=== PATIENT | male | born 1945 ===

== ENCOUNTER → 2021-07-11 10:32 | Outpatient (BNVA) | payer SELFPAY | PROVIDERS: PCP Internal Medicine; Visit Provider Internal Medicine | DX: Z02.79 Encounter for issue of other medical certificate (principal) ==

== ENCOUNTER 2021-08-09 07:15 | Outpatient (REF) | payer MEDICARE, SELFPAY ==
[2021-08-09 07:34] LABS: MANUAL DIFF FLAG NO
[2021-08-09 08:19] LABS: Basophils Percent Auto 0.4 % (0-2); Eosinophils Absolute Auto 0.3 X10*3/uL (0.0-0.4); Eosinophils Percent Auto 4.7 % (0-4); Hematocrit 40.4 % (42.0-52.0); Hemoglobin 13.3 g/dl (14.0-18.0); Imm Gran Abs Auto 0.01 X10*3/uL (0.00-0.03); Imm Gran Pct Auto 0.1 % (0.0-0.4); Lymphocytes Absolute Auto 2.2 X10*3/uL (1.2-4.9); Lymphocytes Percent Auto 32.8 % (20-40); Mean Corpuscular HGB Conc 32.9 g/dl (31.0-36.0); Mean Corpuscular Hemoglobin 27.9 pg (27.0-33.0); Mean Corpuscular Volume 84.7 fL (80.0-98.0); Mean Platelet Volume 10.4 fL (9.4-12.4); Monocytes Absolute Auto 0.6 X10*3/uL (0.1-1.2); Monocytes Percent Auto 8.9 % (2-11); Neutrophils Absolute Auto 3.6 x10*3/uL (2.0-8.3); Neutrophils Percent Auto 53.1 % (45-73); Platelet Count 167 X10*3/uL (160-400); Red Blood Count 4.77 X10*6/uL (4.60-5.80); Red Cell Distribution Width 12.9 % (11.0-16.0); White Blood Count 6.8 X10*3/uL (4.8-10.8)
[2021-08-09 08:29] LABS: Creatinine Urine 156.15 mg/dL; Microalbum/Creatinine Ratio Ur 11.5 ug/mg cr
[2021-08-09 08:34] LABS: Estimated Average Glucose 143 mg/dL; Hemoglobin A1c % 6.6 %
[2021-08-09 08:59] LABS: Alanine Aminotransferase 20 U/L (0-40); Albumin Level 4.3 g/dL (3.5-5.0); Alkaline Phosphatase < 5 U/L (39-117); Anion Gap 13 (12-20); Aspartate Amino Transferase 19 U/L (5-37); Bilirubin Direct 0.3 mg/dL (0.0-0.5); Bilirubin Total 0.8 mg/dL (0.0-1.0); Blood Urea Nitrogen 14 mg/dL (9-16); Calcium 9.5 mg/dL (8.4-10.2); Carbon Dioxide 32 mmol/L (22-29); Chloride 100 mmol/L (96-108); Cholesterol 180 mg/dL; Estimated Glomerular Filt Rate > 60; Glucose Random 127 mg/dL (60-115); HDL Cholesterol 44 mg/dL; LDL Cholesterol Calculated 118 mg/dl; Potassium 3.4 mmol/L (3.3-5.1); Sodium 142 mmol/L (135-145); Total Protein 7.2 g/dL (6.5-8.0); Triglycerides 93 mg/dL
== END 2021-08-09 07:16 | disposition home or self-care (01) ==
LOC: HO.LAB 07:15
PROVIDERS: PCP Internal Medicine Geriatric Medicine; Visit Provider Internal Medicine Geriatric Medicine
DX: E11.9 Type 2 diabetes mellitus without complications (principal); I10 Essential (primary) hypertension
CPT/HCPCS: 36415; 80048; 80061; 80076; 82043; 83036; 85025

== ENCOUNTER → 2021-09-03 08:54 | Outpatient (BNVA) | payer MEDICARE, SELFPAY | PROVIDERS: PCP Internal Medicine Geriatric Medicine; Referring Provider Internal Medicine Geriatric Medicine; Visit Provider Internal Medicine | DX: I35.0 Nonrheumatic aortic (valve) stenosis (principal); R07.2 Precordial pain; I10 Essential (primary) hypertension; E11.9 Type 2 diabetes mellitus without complications; Z79.84 Long term (current) use of oral hypoglycemic drugs | CPT/HCPCS: 93005; 99202 ==

== ENCOUNTER → 2021-10-29 09:26 | Outpatient (REF) | payer MEDICARE, SELFPAY ==
--- NOTE | ~2021-10-29 | NM_ITS ---
Exercise Myocardial perfusion study Indication: Precordial chest pain to evaluate for myocardial ischemia Technique: The patient was brought in for an exercise perfusion study on 10/29/2021. Patient performed exercise as per Javier protocol and was injected 25 mCi of sestamibi was given intravenously one target HR was achieved. Images were obtained using the SPECT gamma camera interlaced with the gating device. Images were obtained in supine position. Resting perfusion study was performed on 10/30/2021. Patient was administered 25 mCi of sestamibi intravenously at rest. Images were then obtained in supine position. Images obtained with and without CT attenuation. Total DLP 79 mGy-cm. Images were processed with the software and compared side to side in short axis, horizontal long axis and vertical long axis views. Findings: The stress perfusion study showed both attenuated as well as non attenuated images show normal uptake of radiotracer in all segments of LV myocardium. The gated study shows normal LV systolic function with calculated LVEF of 73%. LV cavity is normal in size. The gated study shows normal systolic wall thickening and contraction of all segments. There is no transient ischemic dilation. Resting study shows non attenuated images show normal uptake of radiotracer in all segments of LV. Gating at rest reveals normal systolic wall motion with ejection fraction at 68%. The findings are consistent with normal myocardial perfusion. NM/NM cardiolite stress test Impression: 1. Normal myocardial perfusion 2. Gated LVEF is 68% 3. Transient ischemic dilatation not present Stress EKG is negative for ischemia
--- NOTE | 2021-10-29 09:29 | CA_ITS ---
Acquisition Time: 2021-10-29 10:24:15 Total Exercise Time: 00:07:00 Test Indications: Chest Pain Medications: AMLODIPINE HCTZ METFORMIN PRAVASTATIN Protocol: BONNY Max HR: 136 BPM 93% of Pred: 146 BPM Max BP: 172/080 mmHG Max Work Load: 8.5 METS Exercise stress test with exercise 7 min of Bonny protocol, without anginal symptoms, with isolated PACs and PVCs, with normotensive response to exercise, without EKG changes of ischemia at peak exercise, there is nonspecific ST changes noted in recovery. Nuclear images pending. Test reviewed with Dr Keen. Referred By: Karlos Keen Overread By: AALIYAH HAQ
--- NOTE | 2021-10-29 09:29 | CA_ITS ---
Transthoracic Echocardiogram Patient (Last, First, Middle): Roel Balderas, Gender: Male Date of : 1945 Age: 76 Procedure Date: 10/29/2021 Procedure Type: Transthoracic Echocardiogram Location: OP Height: 167.64 cm Weight: 64.41 kg BSA: 1.73 m2 Heart Rate: bpm BP: 122 / 60 mmHg Director Of Programming: Referring MD: Karlos Keen MD Bonsai Culturist: Karlos Keen MD Symptoms: I35.0 - Nonrheumatic aortic (valve) stenosis Study Quality: Good ECG Rhythm: Sinus Conclusions: - The left ventricular systolic function is normal. The calculated ejection fraction is 63% by biplane method. - There is moderate calcification of the aortic valve. - There is mild tricuspid valve regurgitation. Findings Left Ventricle Normal left ventricular cavity size. There is mildly increased left ventricular wall thickness. The left ventricular systolic function is normal. The calculated ejection fraction is 63% by biplane method. There is no evidence of regional wall motion abnormalities. LV peak GLS -18.3%. Right Ventricle Normal right ventricular cavity size and systolic function. Atria The left atrium is normal in size. Aortic Valve There is moderate calcification of the aortic valve. There is no aortic valve stenosis. There is trace (trivial) aortic valve regurgitation. Mitral Valve There is mild anterior mitral leaflet thickening. There is trace mitral valve regurgitation. There is no mitral valve stenosis. Pulmonic Valve The pulmonic valve is likely normal. Tricuspid Valve There is mild tricuspid valve regurgitation. There is no evidence of pulmonary hypertension. Great Vessels The asc aorta is normal in size. Venous The inferior vena cava is normal in size and collapses greater than 50% with inspiration. Pericardium/Pleural There is no evidence of pericardial effusion. Prior Study Comparison No prior study available for comparison. Measurements 2D Linear Measurements IVSd: 1.20 0.6-0.9/0.6-1.0 cm LVIDd: 3.85 3.9-5.3/4.2-5.9 cm LVIDd Index: 2.23 2.4-3.2/2.2-3.1 cm/m2 LVIDs: 2.18 2.0-3.6 cm LVPWd: 1.22 0.7-1.1 cm Ao Root: 2.80 2.1-3.5 cm LA Diam: 3.30 2.7-3.8/3.0-4.0 cm LAIDs Index: 1.91 1.5-2.3 cm/m2 LV Mass: 197.00 67-162/88-224 g LV Mass Index: 113.87 43-95/49-115 g/m2 LVOT Diam: 2.00 3.0+(-)1.3 cm 2D Systolic Function EF 4C: 58.50 >55% EF 2C: 67.10 >55% EF BiP: 62.60 >55% Mitral Valve MV Pk E: 0.81 MV PK A: 1.04 MV Decel Time: 229.00 E/A: 0.80 E'Lateral: 10.20 E'Medial: 8.38 E/E' Med: 9.70 E/E' Lat: 7.90 PHT: 67.00 MVA PHT: 3.28 Decel Chaves: 3.54 Aortic Valve AoV Pk Sunil: 1.84 AoV Mn Sunil: 1.31 AoV VTI: 0.41 AoV Pk Grad: 14.00 Aov Mn Grad: 8.00 MARY Cont.VTI: 1.72 LVOT LVOT Pk Sunil: 0.99 LVOT Mn Sunil: 0.58 LVOT VTI: 0.22 LVOT Pk Grad: 4.00 LVOT Mn Grad: 2.00 LVOT Diam: 2.00 LVOT Area: 3.14 Diastolic Function MV Pk E: 0.81 MV Pk A: 1.04 E/A: 0.80 E'Medial: 8.38 E/E' Med: 9.70 E' Laterial: 10.20 E/E' Lat: 7.90 Right Ventricle TAPSE (mm): 21.00 Tricuspid Valve TR Pk Sunil: 2.41 TR Pk Grad: 23.00 Great Vessels Aorta Ao Root-2D: 2.80 2.0-3.7 cm Ao Asc: 2.90 2.1-3.4 cm Pulmonary Valve PV Pk Sunil: 1.14 Peak PV Grad: 5.00 Updated in Other Vendor System with Status of Final Karlos Keen MD electronically signed on 10/31/2021 1:50:32 PM with status of Final
== END ==
LOC: HO.CARD 09:26
PROVIDERS: PCP Internal Medicine Geriatric Medicine; Visit Provider Internal Medicine
DX: R07.2 Precordial pain (principal); I35.0 Nonrheumatic aortic (valve) stenosis
CPT/HCPCS: 78452; 93017; 93306; 93356; A9500

== ENCOUNTER 2022-04-05 06:03 | Emergency (ER) | payer MEDICARE, SELFPAY ==
--- NOTE | ~2022-04-05 | XR_ITS ---
EXAMINATION: XR SHOULDER, LEFT CLINICAL INFORMATION: Left shoulder pain COMPARISON: None TECHNIQUE: 3 views of the left shoulder FINDINGS: There is no evidence of acute fracture or dislocation of the left shoulder. No calcific tendinitis. No destructive bony lesions. There is question of some mild superior subluxation of the humeral head. No widening of the coracoclavicular space is seen. No significant acromial clavicular joint degenerative change seen. XR/XR shoulder LT min 2V IMPRESSION: Question mild subluxation of the humeral head. No evidence of acute fracture or dislocation.
[2022-04-05 06:20] VITALS: BP 129/57; PULSE 91; RESP 18; TEMP 36.8; O2SAT 99; BMI 20.9
[2022-04-05 07:26] VITALS: BP 128/67; PULSE 88; RESP 16; TEMP 36.9; O2SAT 98
--- NOTE | 2022-04-05 07:39 | ECG_ITS ---
Test Reason : LEFT ARM PAIN Blood Pressure : / mmHG Vent. Rate : 089 BPM Atrial Rate : 089 BPM P-R Int : 138 ms QRS Dur : 108 ms QT Int : 374 ms P-R-T Axes : 057 062 034 degrees QTc Int : 455 ms Normal sinus rhythm Normal ECG When compared with ECG of 22-DEC-2012 15:51, Nonspecific T wave abnormality now evident in Lateral leads Referred By: Noe Kong Electronically Signed By:Cliff Ralph
--- NOTE | 2022-04-05 07:47 | ED_ITS ---
HPI - General Adult General Chief complaint: General Medical Stated complaint: pain in left shoulder Time Seen by Provider: 04/05/22 07:28 Source: patient Mode of arrival: ambulatory Limitations: no limitations History of Present Illness HPI narrative: 76-year-old male with past medical history of diabetes, hypertension presents to the emergency department complaining of left shoulder pain which started 4 days ago. Patient states pain has been constant, moderate to severe at times. Made worse with specific movements and lying on his left side. Denies nausea, shortness of breath or excessive sweating. Onset (ago): day(s) Location: left and upper extremity Radiation: non-radiation Severity: moderate Quality: aching and dull Pain Consistency: constant Relieving factors: none Exacerbating factors: none Associated symptoms: denies other symptoms Treatments prior to arrival: none Related Data Home Medications Medication Instructions Recorded Confirmed amlodipine 10 mg tablet 10 mg PO DAILY 09/03/21 09/03/21 hydrochlorothiazide 50 mg tablet 50 mg PO DAILY 09/03/21 09/03/21 latanoprost 0.005 % eye drops 1 drp ophthalmic (eye) DAILY 09/03/21 09/03/21 metformin 500 mg tablet,extended 500 mg PO BID 09/03/21 09/03/21 release 24 hr pravastatin 20 mg tablet 20 mg PO DAILY 09/03/21 09/03/21 Allergies Allergy/AdvReac Type Severity Reaction Status Date / Time aspirin [Aspirin] Allergy Intermediate SWELLING Verified 09/03/21 09:05 ibuprofen [Ibuprofen] Allergy Intermediate ANGIOEDEMA Verified 09/03/21 09:05 Review of Systems Review of Systems: Constitutional: Denies chills and Denies fever(s) Eyes: Denies blurry vision and Denies diplopia ENT: Denies dizziness, Denies nasal congestion and Denies sore throat Cardiovascular: Denies chest pain, Denies syncope and Denies rapid heart rate Respiratory: Denies cough and Denies wheezing Gastrointestinal: Denies diarrhea, Denies nausea and Denies vomiting Genitourinary: No vaginal bleeding. No discharge. Musculoskeletal: Denies numbness, tingling and neck pain Neuro: Denies dizziness and Denies syncope Allergic/Immunologic: Denies wheezing, rash Neurologic: Denies Abnormal speech present [facility] Past Medical History Attestation statement: The following information was validated with the patient. Medical History Essential hypertension Type 2 diabetes mellitus with unspecified complications Surgical History (Updated 09/03/21 @ 09:05 by Niya Danielle Luis) No pertinent past surgical history Family History Family History Father No problems noted. Mother No problems noted. Social History Social History Patient Tobacco Use Status: Never used Tobacco Smoked in Last 30 Days: No Use of substances other than those prescribed or required for medical reasons: No Advance Directives: Yes Advance Directives Information Provided: Yes Advance Directives on File: No Physical Exam ED Vital Signs: Vital Signs - 24 hr 04/05/22 06:20 04/05/22 07:26 Temperature 98.3 F 98.5 F Pulse Rate 91 88 Respiratory Rate 18 16 Blood Pressure 129/57 L 128/67 Pulse Oximetry 99 98 Oxygen Delivery Method Room Air Room Air BMI result Body Mass Index 20.9 vital signs are stable and normal Const General: cooperative, healthy appearing and no acute distress Nutritional Appearance: average body habitus Orientation/consciousness: patient oriented x3 Limitations: no limitations HENMT Head: Yes normal to inspection, Yes normocephalic and Yes atraumatic Ears: external ears normal General nose exam: Normal external nose present Face and sinus: Yes normal facial exam Eyes Conjunctivae: conjunctivae normal Sclerae: sclerae normal Corneas: corneas normal Pupils: Equal, round and reactive pupils present EOM: EOMs intact bilaterally Neck Neck: Yes normal visual inspection Neck images: 1. tenderness noted without swelling Chest Chest palpation & inspection: normal inspection of the chest Resp Effort & Inspection: normal respiratory effort and no cough Auscultation: clear to auscultation bilaterally Cardio Rate: regular rate Rhythm: regular rhythm GI Inspection: Yes normal to inspection and No distended Back/Spine/Pelvis Cervical Spine: normal cervical lordosis, cervical muscular tenderness and pain with cervical ROM Skin General skin exam: no rashes or lesions noted, no mottling and no pallor Neuro General: patient oriented x3 and CN's II-XI intact bilaterally Cranial nerves: Yes Equal, round and reactive pupils present Cognition (Neuro): normal cognition Speech: No Abnormal speech present Gait exam (Neuro): Normal gait present Extrem General: Yes normal to inspection and Yes full ROM Left upper extremity: normal to inspection, full ROM and shoulder/upper arm Details: no tenderness and no swelling Medical Decision Making MDM Narrative Medical decision making narrative: 76 yo male with left shoulder pain since Wednesday. Considerations include primary shoulder problem, cervical radiculopathy, and less likely angina/ischemia/ACS. Xrays reveal possible subluxation of the humerus, but clinically not a concern. Possibly a cervical radiculopathy, but can get MRI as outpatient. ACS not an issue as EKG is unremarkable, and history is not consistent with ACS or ischemia. Will be discharged home to follow up with his PCP, re: MRI and additional testing as needed. Medical Records Medical records reviewed: Yes I reviewed the patient's medical records. Imaging Data left shoulder: Radiologist's impression: IMPRESSION: Question mild subluxation of the humeral head ECG Data Attestation: I personally reviewed and interpreted this ECG as follows: Interpretation: NSR 89. Normal intervals. Normal axis. Non specific ST-T wave changes. No acute ischemia Discharge Plan Discharge Clinical Impression: Acute pain of left shoulder, Cervical radicular pain Patient Disposition: Home, Self-Care Instructions: Cervical Radiculopathy (ED) Additional Instructions: tome el medicamento recetado sheila los pr?ximos d?as para froilan si mejora yuliya s?ntomas. Debe llamar a bermudez m?dico ma?kevin por la ma?kevin para realizar pruebas adicionales, mariela barbara resonancia magn?trevin de bermudez audrey, ya que creo que de ah? provienen yuliya s?ntomas. Si comienza a tener s?ntomas adicionales, mariela dolor en el pecho, dificultad para respirar, fiebre clara, debe llamar a bermudez m?dico de inmediato o regresar al [facility] si lo considera necesario. take the prescribed medication for the next several days to see if it improves your symptoms. You should call your doctor tomorrow morning for additional testing such as an MRI of your neck, as I think this is where your symptoms are coming from. If you start to have any additional symptoms such as chest pain, trouble breathing, high fevers, you should call your doctor right away or return to the Emergency Department if you feel it is necessary. Prescriptions: No Action metformin 500 mg tablet extended release 24 hr 500 mg PO BID amlodipine 10 mg tablet 10 mg PO DAILY hydrochlorothiazide 50 mg tablet 50 mg PO DAILY pravastatin 20 mg tablet 20 mg PO DAILY latanoprost 0.005 % drops 1 drp ophthalmic (eye) DAILY Referrals: Name,MD Mike [Primary Care Provider] - 1 day Print Language: [place] African
--- NOTE | 2022-04-05 08:02 | PC.NURSE ---
Pt's V/S are stable, pt is complaining of left upper back pain 10/10 and it gets worst with movement. Pt reports experiencing similar pain prior. Pt is a/o x5, and he is able to ambulate independently. will continue to monitor.
== END 2022-04-05 10:34 | disposition home or self-care (01) ==
PROVIDERS: Emergency Provider Emergency Medicine; PCP Internal Medicine Geriatric Medicine
DX: M25.512 Pain in left shoulder (principal); M54.2 Cervicalgia
CPT/HCPCS: 73030; 93005; 99284

== ENCOUNTER 2022-12-22 09:04 | Outpatient (REF) | payer MEDICARE, SELFPAY ==
[2022-12-22 11:30] LABS: Appearance Urine Clear; Color Urine Dark Yellow; Glucose Urine UA Negative (Negative); Leukocyte Esterase Urine Trace (Negative); Nitrite Urine Negative (Negative); UMIC TRIGGER UACC YES; Urine Blood Negative (Negative); Urine Ketones Trace mg/dL (Negative); Urine Protein 30 (1+) mg/dL (Neg-Trace)
[2022-12-22 11:38] LABS: Bacteria Urine None Seen (None Seen); Hyaline Casts Urine 0-2 /LPF (0-2); RBC Urine 0-2 /HPF (0-2); Squamous Epithelial Cell Urine 0-2 /HPF (0-2); WBC Urine 0-5 /HPF (0-5)
[2022-12-22 11:58] LABS: Anion Gap 15 (12-20); Blood Urea Nitrogen 10 mg/dL (9-16); Calcium 9.8 mg/dL (8.4-10.2); Carbon Dioxide 26 mmol/L (22-29); Chloride 106 mmol/L (96-108); Estimated Glomerular Filt Rate > 60; Glucose Random 125 mg/dL (60-115); Potassium 3.7 mmol/L (3.3-5.1); Sodium 143 mmol/L (135-145)
[2022-12-22 12:00] LABS: Prostate Specific Antigen 1.29 ng/mL (<0.05-4.0)
== END 2022-12-22 09:05 | disposition home or self-care (01) ==
LOC: HO.HHCL 09:04
PROVIDERS: Visit Provider Internal Medicine Geriatric Medicine
DX: E87.6 Hypokalemia (principal); I10 Essential (primary) hypertension; N40.0 Benign prostatic hyperplasia without lower urinary tract symptoms; Z12.5 Encounter for screening for malignant neoplasm of prostate
CPT/HCPCS: 36415; 80048; 81001; 84153

== ENCOUNTER 2023-11-09 09:30 | Outpatient (AMB) | payer MEDICARE, SELFPAY ==
--- NOTE | 2023-11-09 09:32 | MHC.OFFVIS ---
Vital Signs 11/09/23 09:41 Height 5 ft 6 in Weight 136 lb BMI 21.9 BP 162/72 H Blood Pressure Location Rt brachial Position Sitting Pulse 65 Intake Visit Reasons: External hemorroid Intake Note: Patient referred by Ifrah MCCLAIN for external hemorrhoids. Rx HC suppository not approved by insurance. Patient c/o: ? Bleeding w/BM. Last colonoscopy about 25 yrs ago. Purchase Order Checker Required: No Accompanied by: daughter Jade Colon Allergies aspirin [Aspirin] Allergy (Intermediate, Verified 11/09/23 09:39) SWELLING ibuprofen [Ibuprofen] Allergy (Intermediate, Verified 11/09/23 09:39) ANGIOEDEMA HPI Comments Details: Patient presents with a several month history of symptomatic large hemorrhoid. Because of persistent progressive symptoms he presents for further evaluation. Patient has no other GI issues or complaints. Aside from the discomfort he has no history of bleeding or change in bowel habits or blood in his stool. Patient had colonoscopy over 20 years ago which she says was within normal limits. Patient presents with his daughter. Chart was reviewed and patient evaluated [facility] Medical History Type 2 diabetes mellitus with unspecified complications Essential hypertension Surgical History No pertinent past surgical history Family History Father No problems noted. Mother No problems noted. Social History Patient Tobacco Use Status: Never used Tobacco Physical Exam Vital Signs: Last Vital Signs Pulse 65 11/09/23 09:41 BP 162/72 H 11/09/23 09:41 BMI result Body Mass Index 21.9 Chest Other: Chest breath sounds bilaterally, HS 1 in 2 GI Other: Abdomen is soft and benign. Rectal exam demonstrates a massive external hemorrhoid. Rectal exam was deferred secondary to patient's discomfort. Assessment & Plan Assessment & Plan (1) External hemorrhoid: Code(s): K64.4 - Residual hemorrhoidal skin tags Category: Surgical Plan Patient wishes to have this excised. Risks, benefits, alternatives of hemorrhoid excision reviewed the patient and included but not limited to bleeding, infection, recurrence, numbness, pain, scarring, incontinence and the patient wishes to proceed. All questions answered. Patient will be given a many bowel prep day prior. Arrangements were made for this. Coding Level of Care Code New Pt Level 5 (88971) Diagnoses External hemorrhoid K64.4
[2023-11-09 09:41] VITALS: BP 162/72; PULSE 65; BMI 21.9
== END 2023-11-09 09:47 | disposition home or self-care (01) ==
PROVIDERS: PCP Internal Medicine Geriatric Medicine; Visit Provider Surgery
DX: K64.4 Residual hemorrhoidal skin tags (principal)
CPT/HCPCS: 99204

== ENCOUNTER → 2023-11-09 09:30 | Outpatient (BNVA) | payer MEDICARE, SELFPAY | PROVIDERS: PCP Internal Medicine Geriatric Medicine; Visit Provider Surgery | DX: K64.4 Residual hemorrhoidal skin tags (principal) | CPT/HCPCS: 99202 ==

== ENCOUNTER 2023-12-30 08:02 | Outpatient (REF) | payer MEDICARE, SELFPAY ==
[2023-12-30 11:58] LABS: Creatinine Urine 114.25 mg/dL; Microalbum/Creatinine Ratio Ur 9.6 ug/mg cr (<30)
[2023-12-30 12:02] LABS: Alanine Aminotransferase 18 U/L (0-40); Albumin Level 4.1 g/dL (3.5-5.0); Alkaline Phosphatase 61 U/L (39-117); Anion Gap 12 (12-20); Aspartate Amino Transferase 17 U/L (5-37); Bilirubin Total 0.7 mg/dL (0.0-1.0); Blood Urea Nitrogen 12 mg/dL (9-16); Calcium 9.5 mg/dL (8.4-10.2); Carbon Dioxide 26 mmol/L (22-29); Chloride 107 mmol/L (96-108); Cholesterol 167 mg/dL (<200); Estimated Glomerular Filt Rate > 60; Glucose Random 130 mg/dL (60-115); HDL Cholesterol 44 mg/dL (>40); LDL Cholesterol Calculated 103 mg/dL (<100); Potassium 3.4 mmol/L (3.3-5.1); Sodium 142 mmol/L (135-145); Total Protein 7.1 g/dL (6.5-8.0); Triglycerides 100 mg/dL (<150)
[2023-12-30 12:07] LABS: ~HepC Num1 0.21 S/CO (0.00-0.79); ~Hepatitis C Antibody Nonreactive (Nonreactive)
[2023-12-30 12:20] LABS: Folate 12.7 ng/mL (> or = 4.0); Vitamin B12 406 pg/mL (200-900)
== END 2023-12-30 08:03 | disposition home or self-care (01) ==
LOC: HO.HHCL 08:02
PROVIDERS: Visit Provider Internal Medicine Geriatric Medicine
DX: E11.9 Type 2 diabetes mellitus without complications (principal); R20.8 Other disturbances of skin sensation; E11.42 Type 2 diabetes mellitus with diabetic polyneuropathy; K64.4 Residual hemorrhoidal skin tags; Z11.59 Encounter for screening for other viral diseases; Z53.20 Procedure and treatment not carried out because of patient's decision for unspecified reasons
CPT/HCPCS: 36415; 80053; 80061; 82043; 82570; 82607; 82746; 86803

== ENCOUNTER 2024-07-18 08:08 | Outpatient (REF) | payer MEDICARE, SELFPAY ==
--- OUTSIDE RECORDS SUMMARY | 2024-07-18 08:16 | XMS_ITS | Clinical Summary ---
Author Organization [employer] Address [address] [facility] 7[address] [place] [address] Care Team Providers Care Social Security Benefits Interviewer Name Role Phone Name, Mike GROSSMAN Primary Care Provider [phone] Allergies Active Allergy Reactions Criticality Noted Date Comments Aspirin Swelling 02/02/2012 Ibuprofen 02/02/2012 Other reaction(s): Angioedema Medications amitriptyline (Elavil) 10 MG tablet Take 1 tablet (10 mg) by mouth at bedtime. 30 tablet 2 09/15/19 24 Active polyethylene glycol, PEG, 3350 (MiraLax) 17 GM/SCOOP powder 17 grams in 8-12 oz fluid like water at bedtime prn constipation 527 g 2 10/26/19 24 Active pravastatin (Pravachol) 20 MG tablet Take 1 tablet (20 mg) by mouth Once per day. TAKE 1 TABLET(20 MG) BY MOUTH IN THE MORNING 90 tablet 3 12/13/19 24 025 Active metFORMIN (Glucophage) 500 MG tabletIndicatio ns:Type 2 diabetes mellitus without complication, without long-term current use of insulin (CMS/HCC) Take 0.5 tablets (250 mg) by mouth with breakfast. 15 tablet 11 01/13/20 24 025 Active amLODIPine (Norvasc) 10 MG tabletIndicatio ns:Hypertension , unspecified type TAKE 1 TABLET(10 MG) BY MOUTH IN THE MORNING 90 tablet 1 02/09/20 24 Active tamsulosin (Flomax) 0.4 MG 24 hr capsule TAKE 1 CAPSULE BY MOUTH EVERY MORNING 90 capsule 1 02/11/20 24 Active docusate sodium (Colace) 100 MG capsule TAKE 1 CAPLET BY MOUTH TWICE DAILY NEEDED CONSTIPATION 180 capsule 1 05/04/19 25 Active losartan (Cozaar) 50 MG tablet Take 1 tablet (50 mg) by mouth Once per day. 30 tablet 11 07/05/19 25 026 Active losartan (Cozaar) 25 MG tablet Take 1 tablet (25 mg) by mouth Once per day. 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 Erectile dysfunction 07/25/2012 [place]: positive 02/02/2012 Overview (06/19/2022): PPD positive for many years Never treated, no respiratory symptoms Numerous normal X-ray Hypertension 02/02/2012 Elevated LDL cholesterol level 02/02/2012 Resolved Problems Problem Noted Date Diagnosed Date Resolved Date Heart murmur 06/19/2022 01/13/2024 Encounters Date Type Department Care Team Description 07/14/2024 Population Health Risk Score [facility] () Department [address] [place] [phone] Provider, Population Health Generic 07/06/2024 Telephone [facility] [address] [place] [address] Mike Nowak MD 07/04/2024 10:00 AM EST Office Visit [facility] [address], [place] [phone] NameMike MD Hypertension, unspecified type (Primary Dx); Type 2 diabetes mellitus without complication, without long-term current use of insulin ([facility]) 07/04/2024 Travel 06/29/2024 Telephone [facility] [address] [place] [address] Patience De Oliveira MA chart prep 05/03/2024 Refill [facility] [address], [place] [phone] Ifrah Corado FNP 04/28/2024 10:00 AM EST Clinical Support [facility] [address] [facility] [place] [address] Jazmine Buckner, TERRENCE Hypertension, unspecified type [I10] 04/28/2024 Telephone [facility] [place] [address] Jazmine Buckner RN 04/21/2024 9:15 AM EST Office Visit [facility] [address] [facility] [place] [address] Name, MD Mike Type 2 diabetes mellitus without complication, without long-term current use of insulin ([facility]) (Primary Dx); Hypertension, unspecified type 04/21/2024 Abstract [facility] [place] [address] Name, MD Mike 04/21/2024 Travel from Last 3 Months Immunizations Name Administration Dates Next Due Influenza High-dose Quadrivalent Preservative Fr ee 02/09/2023,02/19/2022 Influenza Quadrivalent Adjuvanted 01/12/2020 Influenza injectable quadriv alent IIV4 with preservative 04/23/2016,02/12/2015 Influenza injectable quadrivalent preservative f ree 01/31/2019,02/26/2017 Influenza, High Dose Seasonal, Preservative Free 01/13/2024,03/11/2018 Influenza, Split (incl. purified surface antigen ) 06/12/2013,02/02/2012 Pneumococcal Conjugate PCV 13 12/14/2017 Pneumococcal Polysaccharide PPSV23 05/05/2019 TD (adult), 2 Lf tetanus tox oid, preservative free, adsorbed 09/20/2012,09/19/2002 Tdap 09/15/2023,06/12/2013 Zoster, live 12/14/2017 Social History Tobacco Use Types Packs/Day Years Used Date Smoking Tobacco: Never Smokeless Tobacco: Never Tobacco Cessation:Counseling Given: Not Answered Alcohol Use Standard Drinks/Week Comments Never 0 (1 standard drink = 0.6 oz pur e alcohol) Depression Answer Date Recorded Patient Health Questionnaire-9 Score 4 09/15/2023 Patient Health Questionnaire-9 Score 4 09/15/2023 Last PHQ-9: Questionnaire Data Not on file 0 09/15/2023 Housing Stability Answer Date Recorded What is your housing situation today? I have yonathan hernandez 09/15/[address] you li ve. Do you have problems with any of the following? None of the above 09/15/2023 Food Insecurity Answer Date Recorded Within the past 12 months, y ou worried that your food would run out before you got money to buy more: Never True 09/15/2023 Within the past 12 months,th e food you bought just didn't last and you didn't have enough money to get more: Never True Transportation Answer Date Recorded In the past 12 months, has l ack of transportation kept you from medical appts, meetings, work or from getting things needed for daily living? No 09/15/2023 Utilities Answer Date Recorded In the past 12 months, has t he electric, gas, oil or water company threatened to shut off services in your home? No 09/15/2023 Depression Answer Date Recorded Patient Health Questionnaire-2 Score 2 09/15/2023 Sex and Gender Information Value Date Recorded Sex Assigned at Male 03/02/2022 10:15 AM EDT Legal Sex Male 10:15 AM EDT Gender Identity Male 03/02/2022 10:15 AM EDT Sexual Orientation Straight 03/02/2022 10 :15 AM EDT Last Filed Vital Signs Vital Sign Reading Time Taken Comments Blood Pressure 150/81 07/04/2024 10:10 AM EST Pulse 75 07/04/2024 10:10 AM EST Temperature 36.8 ??C (98.2 ??F) 07/04/2024 1 0:10 AM EST Respiratory Rate 21 07/04/2024 10:1 0 AM EST Oxygen Saturation 98% 07/04/2024 10: 10 AM EST Inhaled Oxygen Concentration - - Weight 63.4 kg (139 lb 12.8 oz) 025 10:10 AM EST Height 167.6 cm (5' 6 ) 07/04/2024 10:1 0 AM EST Body Mass Index 22.56 07/04/2024 10:10 AM EST Plan of Treatment Upcoming Encounters Date Type Department Care Team (Late st Contact Info) Description 10/20/2024 9:15 AM EDT Office Visit [facility] [address] [place] [address] Name, MD Mike [address] [place] [address] Health Maintenance Due Date Last Done Comments Alcohol/Substance Use Screening 1957 Zoster Vaccines (2 of 3) 02/08/2018 12/14/2017 RSV Patients and Patients Aged 60 years or older (1 - 1-dose 75+ series) 10/13/2022 COVID-19 Vaccine (3 - 2023- season) 2024 08/29/2020, 08/02/2020 Depression Screening 09/14/2024 09/15/2023, 09/15/19 Diabetes: Foot Exam 09/14/2024 09/15/2023, 09/15/2023, 09/15/2023, Additional history exists SDOH Screening 09/14/2024 09/15/2023 Diabetes: Hemoglobin A1C 10/20/202404/21/ 024, 09/15/2023, 02/09/2023, Additional history exists Diabetes: Urine Protein Screening 12/29/2024 12/30/2023, 08/20/2022, 08/09/2021 Lipid Panel 12/29/2024 12/30/2023, 08/20/2022 Eye Exam 01/05/2025 07/05/2024, 11/29/2023 Tobacco Screening 07/04/2025 07/04/2024 DTaP/Tdap/Td Vaccines (3 - Td or Tdap) 09/14/2033 09/15/2023, 06/12/2013, 09/20/2012, Additional history exists Pneumococcal Vaccine: 50+ Years Completed 05/05/2019, 12/14/2017 Hepatitis C Screening Completed 12/30/2023 Influenza Vaccine Completed 01/13/2024, , 02/19/2022, Additional history exists HIB Vaccines Aged Out No longer eligi ble based on patient's age to complete this topic HPV Vaccines Aged Out No longer eligi ble based on patient's age to complete this topic Hepatitis A Vaccines Aged Out No long er eligible based on patient's age to complete this topic Hepatitis B Vaccines Aged Out No long er eligible based on patient's age to complete this topic IPV Vaccines Aged Out No longer eligi ble based on patient's age to complete this topic Meningococcal Vaccine Aged Out No roberta sherman eligible based on patient's age to complete this topic RSV under 20 months Aged Out No longe r eligible based on patient's age to complete this topic Rotavirus Vaccines Aged Out No longer eligible based on patient's age to complete this topic Procedures Procedure Name Priority Date/Time Associated Diagnosis Comments POCT GLUCOSE Routine 07/04/2024 10:15 AM EST Type 2 diabetes mellitus without complication, without long-term current use of insulin (CMS/HCC) POCT GLYCATED HEMOGLOBIN, TOTAL Routine 04/21/2024 9:25 AM EST Type 2 diabetes mellitus without complication, without long-term current use of insulin (CMS/HCC) POCT GLUCOSE Routine 04/21/2024 9:22 AM EST Type 2 diabetes mellitus without complication, without long-term current use of insulin (CMS/HCC) ALBUMIN, RANDOM URINE W/CREATININE Routine 12/30/2023 8:19 AM EDT Diet-controlled diabetes mellitus (CMS/HCC) Burning sensation of feet Diabetic polyneuropathy associated with type 2 diabetes mellitus (CMS/HCC) External hemorrhoid Need for hepatitis C screening test HEPATITIS C AB W/REFL TO HCV RNA, QN, PCR Routine 12/30/2023 8:08 AM EDT Diet-controlled diabetes mellitus (CMS/HCC) Burning sensation of feet Diabetic polyneuropathy associated with type 2 diabetes mellitus (CMS/HCC) External hemorrhoid Need for hepatitis C screening test LIPID PANEL, STANDARD Routine 12/30/2023 8:08 AM EDT Diet-controlled diabetes mellitus (CMS/HCC) Burning sensation of feet Diabetic polyneuropathy associated with type 2 diabetes mellitus (CMS/HCC) External hemorrhoid Need for hepatitis C screening test HM DIABETES EYE EXAM Routine 11/29/2023 from Last 3 Months or Most Recently Relevant to Health Maintenance Results * POCT Glucose (07/04/2024 10:15 AM EST) Only the most recent of2 resultswithin the time period is included. Glucose Blood, POC 131 60 - 200 mg/dL QC Media Lot # [id number] Lot# Expiration Date 82,625 Blood Capillary blood specimen / Unknown 07/04/2024 10:15 AM EST us Mike Nowak MD POINT OF CARE TEST ENTER/EDIT OR DERABLES Final Result * (ABNORMAL) POCT HGB A1C (04/21/2024 9:25 AM EST) Hemoglobin A1C 6.4(A) 4.0 - 6.0 % QC Media Lot # [id number] Lot# Expiration Date 71,626 Blood 04/21/2024 9:25 AM EST us Mike Nowak MD POINT OF CARE TEST ENTER/EDIT OR DERABLES Final Result * Albumin, Random Urine W/Creatinine (12/30/2023 8:19 AM EDT) Creatinine, Urine 114.25 mg/dL [facility] Microalbumin Urine 11.0 mg/L [facility] Microalbum Creatinine Ratio Ur 9.6 <30 ug/mg cr [facility] Comment:Albumin/Creatinine R atio Reference Ranges: Normal: < 30 ug/mg creatinine Microalbuminuria: 30 - 300 ug/mg creatinineClinical Albuminuria: > 300 ug/mg creatinine Urine (Urine, Random) 12/30/2023 8:19 AM EDT 12/30/2023 10:58 AM EDT Result Flores Nowak MD LAB URINE ORDERABLES Final Resul t [facility] [address] [place] [phone] * Hepatitis C Antibody with Reflex to HCV, RNA, Quantitative, Real-Time PCR (12/30/2023 8:08 AM EDT) Hepatitis C Antibody Nonreactive Nonreactive [facility] Comment:Antibodies to HCV no t detected; does not exclude early acuteHCV infection. Blood Venous blood specimen / Unknown 12/30/2023 8:08 AM EDT 12/30/2023 11:10 AM EDT us Mike Nowak MD LAB BLOOD ORDERABLES Final Resul t Performing Organization Address [facility] de Phone Number [facility] [address] [place] [phone] * (ABNORMAL) Lipid Panel, Standard (12/30/2023 8:08 AM EDT) Triglycerides 100 <150 mg/dL [facility] Comment:Desirable Triglyceri de: less than 150 mg/dLBorderline High Triglyceride 150-199 mg/dLHigh Triglyceride: 200-499 mg/dLVery High Triglyceride: greater than or equal to 5OO mg/dL Cholesterol 167 <200 mg/dL [facility] Comment:Desirable Cholestero l: less than 200 mg/dLBorderline High Cholesterol: 200-239 mg/dLHigh Cholesterol: greater than 239 mg/dL LDL Cholesterol Calculated 103(H) <100 mg/dL [facility] Comment:Desirable LDL: less than 100 mg/dLNear Optimal/Above Optimal LDL: 110- 129 mg/dLBorderline High LDL: 130-159 mg/dLHigh LDL: 160-189 mg/dLVery High LDL: greater than or equal to 190 mg/dL HDL Cholesterol 44 >40 mg/dL [facility] Comment:Desirable HDL: great er than 40 mg/dL Note: This HDL assay may give artificially low results in patients with liver disease. Blood Venous blood specimen / Unknown 12/30/2023 8:08 AM EDT 12/30/2023 11:10 AM EDT us Mike Nowak MD LAB BLOOD ORDERABLES Final Resul t Performing Organization Address [facility] Co de Phone Number [facility] [address] [place] [phone] * (ABNORMAL) Diabetes Eye Exam (11/29/2023) Eye Exam Abnormal(A) Normal 11/29/2023 us Mike Nowak MD HEALTH MAINTENANCE Final Result from Last 3 Months or Most Recently Relevant to Health Maintenance Insurance [facility] [employer]PLETE HMO Care Teams Social Security Benefits Interviewer Relationship Specialty Start Date End Date Name, MD Mike [address] [place] [address] PCP - General Family Medicine 03/07/20
--- OUTSIDE RECORDS SUMMARY | 2024-07-18 08:16 | XMS_ITS | Encounter Summary ---
Author Organization [employer] Address [address] [facility] 7[address] [place] [address] Care Team Providers Care Bridge Maintenance Worker Name Role Phone Name, Mike GROSSMAN Primary Care Provider [phone] Encounter Details Date Type Department Care Team ([facility] st Contact Info) Description 07/06/2024 Telephone [facility] [address] [place] [address] Name, MD Mike [address] [place] [address] Social History Tobacco Use Types Packs/Day Years Used Date Smoking Tobacco: Never Smokeless Tobacco: Never Alcohol Use Standard Drinks/Week Comments Never 0 [...] Orientation Straight 03/02/2022 10 :15 AM EDT documented as of this encounter Miscellaneous Notes * Telephone Encounter - Kourtney Bond - 07/06/2024 11:13 AM EST Placed outbound call to the patient to schedule Medicare Annual Wellness Visit. No answer at this time. Patient's name and were not confirmed. Left detailed message educating patient on Annual Wellness Visits. Provided contact information requesting a call back to [facility] at [phone] in order to schedule an AWV appointment. documented in this encounter Plan of Treatment Upcoming Encounters Date Type Department Care Team (Late st Contact Info) Description 10/20/2024 9:15 AM EDT Office Visit [facility] [address] [place] [phone] Name, MD Mike [address] [place] [address] documented as of this encounter Visit Diagnoses Not on filedocumented in this encounter Additional Health Concerns Assessment Noted Time PHQ-9 Depression Total Score: 4 09/15/19 24 9:05 AM EDT documented as of this encounter Care Teams Bridge Maintenance Worker Relationship Specialty Start Date End Date Name, MD Mike [address] [place] [phone] PCP - General Family Medicine 03/07/20 documented as of this encounter
--- OUTSIDE RECORDS SUMMARY | 2024-07-18 08:16 | XMS_ITS | Encounter Summary ---
Author Organization [employer] Address [address] [facility] 7t [place] [address] Care Team Providers Care Network Security Consultant Name Role Phone Name, Mike GROSSMAN Primary Care Provider [phone] Reason for Visit * Reason Onset Date Comments chart prep 06/29/2024 Encounter Details Date Type Department Care Team ([facility] st Contact Info) Description 06/29/2024 Telephone [facility] [address] [place] [address] Patience De Oliveira MA chart prep Social History Tobacco Use Types Packs/Day Years [...] encounter Miscellaneous Notes * Telephone Encounter - Patience De Oliveira MA - 06/29/2024 3:49 PM EST Chart Prep Labs: done expect BMP Images: not applicable Vaccines due: yes Referrals: complete Screenings: eye exam , Foot Exam Overdue care gaps: Glucose, Sbirt, SDOH, PHQ-9 documented in this encounter Plan of Treatment Upcoming Encounters Date Type Department Care Team (Late st Contact Info) Description 10/20/2024 9:15 AM EDT Office Visit [facility] [address] [place] [address] Name, MD Mike [address] [place] [address] documented as of this encounter Visit Diagnoses Not on filedocumented in this encounter Additional Health Concerns Assessment Noted Time PHQ-9 Depression Total Score: 4 09/15/19 24 9:05 AM EDT documented as of this encounter Care Teams Network Security Consultant Relationship Specialty Start Date End Date Name, MD Mike [address] [place] [address] PCP - General Family Medicine 03/07/20 documented as of this encounter
--- OUTSIDE RECORDS SUMMARY | 2024-07-18 08:16 | XMS_ITS | Encounter Summary ---
Author Organization [employer] Address [address] [facility] 7 [place] [address] Care Team Providers Care Photo Machine Operator Name Role Phone Name, Mike GROSSMAN Primary Care Provider [phone] Reason for Visit * Reason Comments Diabetes Encounter Details Date Type Department Care Team ([facility] st Contact Info) Description 07/04/2024 10:00 AM EST Office Visit [facility] [address] [place], [place] [phone] Name, MD Mike [address] [place] [address] Hypertension, unspecified type (Primary Dx); Type 2 diabetes mellitus without complication, without long-term current use of insulin ([facility]) Social History Tobacco Use Types Packs/Day Years [...] AM EDT documented as of this encounter Last Filed Vital Signs Vital Sign Reading [...] Mass Index 22.56 07/04/2024 10:10 AM EST documented in this encounter Progress Notes * Mike Nowak MD - 07/04/2024 10:00 AM EST Subjective Patient ID: Roel Balderas is a 78 y.o. male who presents for Diabetes. Patient comes for a follow-up visit. He does not bring his glucose meter. He is asymptomatic. Bloodsugar is well-controlled based on hemoglobin A1c of 6.6 today. His current medication regimen includes metformin 500 mg that is cutting in half. The patient is also on pravastatin 20, losartan 25, amlodipine 10. The patient assures me he is using his medications regularly. His BP is elevated today.He explains to me that he has been having high blood pressure at home also with multiple systolics in the 140s. Diastolic readings are usually below 90. The patient tells me he is going for [place] for eye exams. Upcoming appointment is in October for his next eye exam. Review of Systems Constitutional: Negative for chills, fatigue and fever. HENT: Negative for sore throat. Respiratory: Negative for cough, chest tightness and shortness of breath. Cardiovascular: Negative for chest pain, palpitations and leg swelling. Gastrointestinal: Negative for abdominal pain and blood in stool. Visit Vitals BP (!) 150/81 (BP Location: Left arm, Patient Position: Sitting, BP Cuff Size: Adult) Pulse 75 Temp 98.2 ??F (36.8 ??C) (Temporal) Resp 21 Ht 5' 6 (1.676 m) Wt 139 lb 12.8 oz (63.4 kg) SpO2 98% BMI 22.56 kg/m?? Smoking Status Never BSA 1.72 m?? Objective Physical Exam Constitutional: Appearance: Normal appearance. Cardiovascular: Rate and Rhythm: Normal rate and regular rhythm. Heart sounds: No murmur heard. Pulmonary: Effort: Pulmonary effort is normal. No respiratory distress. Breath sounds: No wheezing, rhonchi or rales. Abdominal: Palpations: Abdomen is soft. Tenderness: There is no abdominal tenderness. Musculoskeletal: Right lower leg: No edema. Left lower leg: No edema. Neurological: Mental Status: He is alert. Assessment/Plan Diagnoses and all orders for this visit: Hypertension, unspecified type Comments: Continue current dose of metformin. Reminded to avoid sweets and soda. Recommended regular physicalactivity. Continue current dose of pravastatin for primary prevention of cardiovascular disease. Continue amlodipine 10 mg daily for hypertension. I doubled his losartan to 50 mg a day. Continue checking blood pressure at home. He will come next week for repeat BMP. Type 2 diabetes mellitus without complication, without long-term current use of insulin ([facility]) - POCT Glucose Other orders - losartan (Cozaar) 50 MG tablet; Take 1 tablet (50 mg) by mouth Once per day. documented in this encounter Plan of Treatment Upcoming Encounters Date Type Department Care Team (Late st Contact Info) Description 10/20/2024 9:15 AM EDT Office Visit [facility] [address] [place] [address] Name, MD Mike [address] [place] [address] documented as of this encounter Procedures Procedure Name Priority Date/Time Associated Diagnosis Comments POCT GLUCOSE Routine 07/04/2024 10:15 AM EST Type 2 diabetes mellitus without complication, without long-term current use of insulin ([facility]) documented in this encounter Results * POCT Glucose (07/04/2024 10:15 AM EST) Glucose Blood, POC 131 60 - 200 mg/dL QC Media Lot # [id number] Lot# Expiration Date 82,625 Blood Capillary blood specimen / Unknown 07/04/2024 10:15 AM EST Mike Nowak MD POINT OF CARE TEST ENTER/EDIT OR DERABLES Final Result documented in this encounter Visit Diagnoses Diagnosis Hypertension, unspecified type- Primary Type 2 diabetes mellitus without complication, without long-term current use of insulin ([facility]) documented in this encounter Additional Health Concerns Assessment Noted Time PHQ-9 Depression Total Score: 4 09/15/19 24 9:05 AM EDT documented as of this encounter Care Teams Photo Machine Operator Relationship Specialty Start Date End Date Name, MD Mike [address] [place] [address] PCP - General Family Medicine 03/07/20 documented as of this encounter
--- OUTSIDE RECORDS SUMMARY | 2024-07-18 08:16 | XMS_ITS | Encounter Summary ---
Author Organization [employer] Address [address] [facility] 7t [place] [address] Care Team Providers Care Senior Procurement Specialist Name Role Phone Name, Mike GROSSMAN Primary Care Provider [phone] Encounter Details Date Type Department Care Team (Late st Contact Info) Description 05/06/2022 Orders Only [facility] [address] [place] [address] Nidia Amos LPN Social History Tobacco Use Types Packs/Day Years Used Date Smoking Tobacco: Never Assessed Sex and Gender Information Value Date Recorded Sex Assigned at Male 03/02/2022 10:15 AM EDT Legal Sex Male 10:15 AM EDT Gender Identity Male 03/02/2022 10:15 AM EDT Sexual Orientation Straight 03/02/2022 10 :15 AM EDT documented as of this encounter Plan of Treatment Upcoming Encounters Date Type Department Care Team (Late st Contact Info) Description 10/20/2024 9:15 AM EDT Office Visit [facility] [address] [place] [address] NameMike MD [address] [place] [address] documented as of this encounter Visit Diagnoses Not on filedocumented in this encounter Care Teams Senior Procurement Specialist Relationship Specialty Start Date End Date Mike Nowak MD [address] [place] [address] PCP - General Family Medicine 03/07/20 documented as of this encounter
--- OUTSIDE RECORDS SUMMARY | 2024-07-18 08:16 | XMS_ITS | Encounter Summary ---
Author Organization [employer] Address [address] [facility] [address] [place] [address] Care Team Providers Care Washing And Screening Plant Supervisor Name Role Phone Name, Mike GROSSMAN Primary Care Provider [phone] Encounter Details Date Type Department Care Team ([facility] st Contact Info) Description 07/14/2024 Population Health Risk Score [facility] Care [facility] ([facility]) Department [address] [id number] Provider, Population Health Generic Social History Tobacco Use Types Packs/Day Years [...] the past 12 months, has t he [employer], gas, oil or water company threatened to [...] Description 10/20/2024 9:15 AM EDT Office Visit [facility] [address] [place] [phone] Name, MD Mike [address] [place] [id number] documented as of this encounter Visit Diagnoses Not on filedocumented in this encounter Additional Health Concerns Assessment Noted Time PHQ-9 Depression Total Score: 4 09/15/19 24 9:05 AM EDT documented as of this encounter Care Teams Washing And Screening Plant Supervisor Relationship Specialty Start Date End Date Name, MD Mike [address] [place] [phone] PCP - General Family Medicine 03/07/20 documented as of this encounter
--- OUTSIDE RECORDS SUMMARY | 2024-07-18 08:16 | XMS_ITS | Encounter Summary ---
Author Organization [employer] Address [address] [facility] [address] [place] [address] Care Team Providers Care Head Golf Professional Name Role Phone Name, Mike GROSSMAN Primary Care Provider [phone] Encounter Details Date Type Department Care Team (Latest Contact Info) Description 07/04/2024 Travel Social History Tobacco Use Types Packs/Day Years [...] Description 10/20/2024 9:15 AM EDT Office Visit [facility] MED[facility]INE [address] [place] [address] Name, MD Mike [address] [place] [address] documented as of this encounter Visit Diagnoses Not on filedocumented in this encounter Additional Health Concerns Assessment Noted Time PHQ-9 Depression Total Score: 4 09/15/19 24 9:05 AM EDT documented as of this encounter Care Teams Head Golf Professional Relationship Specialty Start Date End Date Name, MD Mike [address] [place] [address] PCP - General Family Medicine 03/07/20 documented as of this encounter
[2024-07-18 11:44] LABS: Anion Gap 11 (12-20); Blood Urea Nitrogen 12 mg/dL (9-16); Calcium 9.1 mg/dL (8.4-10.2); Carbon Dioxide 25 mmol/L (22-29); Chloride 111 mmol/L (96-108); Estimated Glomerular Filt Rate > 60; Glucose Random 121 mg/dL (60-115); Potassium 3.7 mmol/L (3.3-5.1); Sodium 143 mmol/L (135-145)
== END 2024-07-18 08:09 | disposition home or self-care (01) ==
LOC: HO.HHCL 08:08
PROVIDERS: Visit Provider Internal Medicine Geriatric Medicine
DX: I10 Essential (primary) hypertension (principal)
CPT/HCPCS: 36415; 80048